=== PATIENT | male | born 1960 | race Caucasian/White ===

== ENCOUNTER 2017-07-12 16:52 | Emergency (ER) | payer MEDICAID ==
[2017-07-12 17:21] VITALS: RESP 18; TEMP 98.8
--- NOTE | 2017-07-12 19:09 | EDPHY ---
H & P Stated Complaint: tx for hep c x 3 months/1 month ago develop face/teeth/throat pain and swel Time Seen by Provider: 07/12/17 17:29 HPI/ROS: CHIEF COMPLAINT: "I feel swollen" HISTORY OF PRESENT ILLNESS: 56-year-old male history of chronic viral hepatitis -C, cirrhosis, followed by his primary care provider Dr. Nilton Deng [facility] and by a commutator tester at [facility] ([place], [place]), started on a regimen of medications 3 months ago and states that for the past 1 month he has been feeling "swollen". Feels that his cheeks, bilateral knees and breasts are swollen. He has seen his primary care provider and his commutator tester about this and expresses frustration and not having an answer. He denies acute symptoms. He denies: Nausea, vomiting, headache, chest pain, dyspnea, change in urinary habits, change in skin coloration. PRIMARY CARE PROVIDER: REVIEW OF SYSTEMS: A ten point review of systems was performed and is negative with the exception of the items mentioned in the HPI PAST MEDICAL & SURGICAL HISTORY: Viral hepatitis-C. Cirrhosis. SOCIAL HISTORY: Nonsmoker PHYSICAL EXAM (Prior to examination, patient consented to physical exam, hands were washed and my usual and customary physical exam procedures followed) 1) GENERAL: Well-developed, well-nourished, alert and oriented. Appears to be in no acute distress. 2) HEAD: Normocephalic, atraumatic 3) HEENT: Pupils equal, round, reactive to light bilaterally. Sclera anicteric. 4) NECK: Full range of motion, no meningeal signs. 5) LUNGS: Clear auscultation bilaterally, no wheezes, no rhonchi, no retractions. 6) HEART: Regular rate and rhythm, no murmur, no heave, no gallop. 7) ABDOMEN: No guarding, no rebound, no focal tenderness, negative McBurney's, negative Mcclellan's, negative Rovsing's, negative peritoneal sign, 8) MUSCULOSKELETAL: Moving all extremities, no focal areas of tenderness, no obvious trauma. No peripheral edema or discoloration. 9) BACK: No CVA tenderness, no midline vertebral tenderness, no fluctuance, no step-off, no obvious trauma, no visual or palpable abnormality. 10) SKIN: No rash, no petechiae. 11) Psychiatric: Patient is oriented X 3, there is no agitation. DIFFERENTIAL DIAGNOSIS: In no particular include but limited to anasarca, medication adverse effect, hepatic coma, encephalopathy - Personal History Current Tetanus/Diphtheria Vaccine: No - Medical/Surgical History Hx Asthma: No Hx Chronic Respiratory Disease: No Hx Diabetes: No Hx Cardiac Disease: No Hx Renal Disease: No Hx Cirrhosis: No Hx Alcoholism: No Hx HIV/AIDS: No Hx Splenectomy or Spleen Trauma: No Other PMH: choly/hep c - Social History Smoking Status: Never smoked Constitutional: Initial Vital Signs Temperature (C) 37.1 C 07/12/17 17:17 Heart Rate 80 07/12/17 17:17 Respiratory Rate 18 07/12/17 17:17 Blood Pressure 161/91 H 07/12/17 17:17 O2 Sat (%) 98 07/12/17 17:17 O2 Delivery Mode Room Air Allergies/Adverse Reactions: No Known Allergies Allergy (Unverified 07/12/17 17:16) Home Medications: Medication Instructions Recorded Ribavirin 07/12/17 Viekira Vito 07/12/17 Medical Decision Making ED Course/Re-evaluation: 7:06 p.m.: I have empathized this patient's ongoing complaints of anasarca- sensation. He has already followed by commutator tester at [facility] ([place], [place]) and has an appointment with his primary care provider tomorrow. From the emergency department I do not identify emergency condition requiring intervention.. I have recommend he keep his appoint with primary care provider tomorrow. This has been explained him and he understands this. Care of patient under supervision of secondary supervising physician Dr Burks with whom I discussed case. Departure - Departure Disposition: Home, Routine, Self-Care Clinical Impression: Hepatitis C Qualifiers: Viral hepatitis chronicity: acute Hepatic coma status: without hepatic coma Qualified Code(s): B17.10 - Acute hepatitis C without hepatic coma Condition: Good Instructions: Hepatitis C (ED) Referrals: Kalie Deng, [Primary Care Provider] - 1 day without fail (Keep your appointment tomorrow with Dr. Deng)
[2017-07-12 19:39] VITALS: BP 140/82; PULSE 94; O2SAT 95
== END 2017-07-12 19:39 | disposition home or self-care (01) ==
DX: B17.10 Acute hepatitis C without hepatic coma (principal)